=== PATIENT | female | born 1965 | race Caucasian/White ===

== ENCOUNTER 2025-06-28 09:29 | Outpatient (AMB) | payer BC, SELFPAY ==
--- OUTSIDE RECORDS SUMMARY | 2025-06-27 14:30 | XMS_ITS | Encounter Summary ---
Author Organization [facility] Address [address] [place] [phone] Phone Care Team Providers Care Ambulatory Services Representative Name Role Phone Cuco Naqvi MD Primary Care Provider [phone] Reason for Referral * Clinic Administered Medication - New Request Specialty Diagnoses / Procedures Referred By Chelsi mary Referred To Contact Diagnoses Intractable chronic migraine without aura and without status migrainosus Maria Guadalupe Benton PA-C [address] [place] [address] Phone: tel: fax: mailto:[email or web address] Referral ID Status Reason Start Date Expiration Date V isits Requested Visits Authorized [id number] New Request 06/27/2025 1 1 Reason for Visit * Clinic Administered Medication (Routine) - Authorized Specialty Diagnoses / Procedures Referred By Chelsi mary Referred To Contact Procedures AR BOTOX INJECTION Cuco Naqvi MD [address] [place] [phone] Phone: tel: fax: Maria Guadalupe Benton PA-C [address] [place] [address] Phone: tel: fax: [email or web address]:[email or web address] Referral ID Status Reason Start Date Expiration Date V isits Requested Visits Authorized [id number] Authorized 06/04/2025 06/04/2026 4 4 Encounter Details Date Type Department Care Team (Latest Contact Info) Description 06/27/2025 2:30 PM EST Procedure visit [facility] Neurology [address] [place] [address] Maria Guadalupe Benton PA-C [address] [place] [id number] [email or web address] Intractable chronic migraine without aura and without status migrainosus (Primary Dx) Social History Tobacco Use Types Packs/Day Years Used Date Smoking Tobacco: Never Smokeless Tobacco: Never Alcohol Use Standard Drinks/Week Comments Never 0 (1 standard drink = 0.6 oz pur e alcohol) Education Answer Date Recorded Are you interested in more education? Not on vince e 12/10/2022 Are you concerned about learning? Not on file 12/10/2022 No 12/10/2022 No 12/10/2022 Digital Access Answer Date Recorded No 01/11/2023 No 01/11/2023 Reliable internet access at home? Not on file 01/11/2023 Device with a working camera? Not on file Comments Unknown Sex and Gender Information Value Date Recorded Sex Assigned at Female 01/10/2020 9:39 AM EDT Legal Sex Female 3:16 PM EST Gender Identity Female 01/10/2020 9:39 AM EDT Sexual Orientation Straight 01/10/2020 9: 39 AM EDT documented as of this encounter Progress Notes * Maria Guadalupe Benton PA-C - 06/27/2025 2:30 PM EST Images from the original note were not included. HEADACHE MEDICINE FOLLOW UP CONSULTATION SHANTELLE Avi [facility] Current Headache Treatments/ Medications: Botox q3mo (started 07/20/2019) Propranolol 120mg qD Emgality Rizatriptan 10mg PRN ~ 3/week Vitamin B2 Vitamin D Iron potassium citrate Other Related Medications: levothyroxine ? Prior Headache Treatments / Medications / Adverse Events Imitrex, Zomig, Relpax - no effect Melatonin - gave bizzare dreams, did not help at 10mg qHS Medrol dose pack - helps a lot Amitriptyline, not effective Has had kidney stones (cannot get topamax) Excedrin, stopped because rough on stomach Interim History: Yazmin Arreola presents today for repeat Botox injections for chronic migraine. Treatment Response: - Frequency: currently reports 12 headache days per month; before botox 20-30 per month - Duration: 10-12 hours; Prior to Botox >6 hours - Intensity: 8/10; Prior to Botox 03/24 - Debility: 0 days missed work/ social activity - Emergency Department / Urgent Care visits due to migraine attacks: 0 Date of last injections: 03/11/2025 As above, Botox treatment is effective at decreasing the frequency, intensity, duration, and debility of migraine attacks and thus remains indicated in this patient. Prior Notes: 11/04/23 Dr. Galvan She has been following with Barby Salmon in interim for botox injections, which have significantly helped. She continues to report >50% improvement to Emgality and Botox. No side effects such as constipation. She is having headaches of some type about a few days per week, but only having severe migrianes that require require rizatriptan 4x/month. No other medication changes. At the last visit, she noted a new pulsatile sound in her L ear with some tinnitus. She is seeing an ENT next month to evaluate. There hasn't been any interval change since the last visit. MRI/MRA showed no vascular etiology but may have a sinus lesion to be evaluated by ENT. 12/28/2023 12:11 PM PROMS Headache Frequency How many days did you have ANY TYPE OF HEADACHE OR HEAD PAIN in the last month? 18 How many SEVERE HEADACHE OR HEAD PAIN DAYS did you have in the last month? (On a headache diary, this is a 7/10 or above) 7 How many days in the last month were COMPLETELY HEADACHE OR HEAD PAIN FREE? 13 Did you use a headache diary to answer these questions? Yes Since the last visit, how many times have you been to urgent care, the emergency room, or the hospital for your headaches? 0 Headache Frequency: 10/08 - 11/mo 04/05 - 3-4x/mo 12/2021 - maybe 1 mild headache/week, then 1-2 severe migraines monthly. Jul 2021 - near daily, only 1 severe (lasted a couple of days) December 2020 - 4 in past month (2 severe, 2 mild) Sep 2020 - 2 migraines in last month Jun 2020: daily mild headache, 3 severe migraines /mo. Q2 2019: 5-7 migraines/mo, which is significant improvement. Still having 2-3 non-migraine wake-up headaches/week for a total of 8-12 (15-20/mo). Q1 2019: 15-20/mo Q4 2018: 20-30/mo History of Present Illness: ? Yazmin Arreola is a 59 y.o. female with a long history of migraine, gastric bypass, hypothyroidism, who presents for evaluation and management of her headaches. Briefly, she has had a history of migrainous headaches (described below) since she was ~8 years old but was not formally diagnosed until she was in her early 30s. She believes these headaches used to be catamenial. Her current headache frequency is between 20 /mo and daily. She has not noticed any recent changes in the quality of her headaches, changes in her vision, speech, strength. She has had no recent DIGITAL MEDIA MANAGER infections or trauma. She has tried numerous medications over the past decades and is currently taking amitriptyline, Topamax and propranolol for migraine prevention. She is following with a neurologist in [facility] and would like to transfer care to this clinic. Her goal of care is to reduce headache frequency. On ROS, she reported that she had constant retroperitoneal pain, that she has had kidney stones in the past, and recently had elevated kidney function tests at her PCP (did not know #s). She also complains of frequent dry mouth. Headache Characteristics: ? Onset of headache: ~8 yo, continuous since onset Headache days per month: 20-30; 5 of them are severe. Typical headache duration: hours to 2-3 days Headache location/radiation: Starts above right eye, migrates to bifrontal Quality: Initially stabbing, then pulsating headache Associated features include: Photophobia, phonophobia, osmophobia, nausea, vomiting and cutaneous allodynia. ?Aura: Rarely happens, has had 4 episodes of visual aura involving OS vision. No speech changes, weakness. Autonomic features?: none Headache behavior: retreats to a dark room Headache worsened by: no major position change, but coughing, sneezing, exertion worsens. Headache improved by: triptan Headache triggers: weather, sleep deficit Dizziness: Rarely Menstrual association: yes effect: doesn't remember Sleep: 6-7hr/night -- amitriptyline really helps with this. ? Caffeine Use: ?1 cup of tea in AM Current Headache Treatments/ Medications: Topamax 100mg TID Amitriptyline 200mg qHS Propranolol 120mg qD rizatriptan 10mg PRN ~ 2-4/week Excedrin migraine ~ 4x/week Ibuprofen Vitamin B2 Vitamin D Iron Other Related Medications: levothyroxine ? Prior Headache Treatments / Medications / Adverse Events Imitrex, Zomig, Relpax - no effect Allergies Allergen Reactions Codeine Headaches Amoxicillin Rash Penicillins Rash Past medical history: Quynh's ?kidney function test elevation Kidney stones 1996 Gastric bypass 2008 Cholecystectomy 2010 Social History: , 1 child, teachers ? Family History: Mom, dad, brother with migraines Dad - diabetes ? ?Virtual Physical Examination:? Alert, normal speech, face symmetric INFORMED CONSENT: The rationale, risks, benefits, and alternatives of Botox injection for headaches were reviewed with the patient?. All questions were answered, consent was obtained, and the patient decided to proceed with the injections. ?? ? PROCEDURAL PAUSE?: Prior to starting the procedure, all pertinent records were reviewed, the nature of the procedure was explained, and a pre-procedure pause was performed. Procedural pause conducted to verify: correctpatient identity, procedure to be performed, correct patient position, special requirements, and asapplicable, correct side and site?. ? PROCEDURE DETAILS?: Botulinum toxin injection? INDICATION: Chronic migraine ? ??Using sterile technique, the skin was prepped with alcohol.? 1. 5 units into each roustabout crew pusher muscle and into the procerus muscle (15 units total). ? 2. 10 units into the right and left superior frontalis muscle (20 units total).? 3. 20 units into the right and left temporalis muscle (40 units total).? 4. 15 units into the right and left occipitalis muscle (30 units total).? 5. 10 units into the right and left? splenius capitis muscle (20 units total).??? 6. 15 units into the right and left?trapezius muscle (30 units total).? 155 units total. The remaining 45 units were wasted. ???The patient tolerated the procedure well.?? There were no apparent complications. Following an appropriate amount of observation, the patient was dismissed from the Clinic in good condition under her own power. Data Review: MRI/MRA 10/23/23 1. No imaging explanation for the reported left-sided pulsatile sound perception. 2. Purulent or proteinaceous content in the sphenoid sinus. Indeterminate 1 cm left maxillary sinusmedial wall lesion. Endoscopic ENT evaluation is recommended. Impression: ? Yazmin Arreola is a 59 y.o. female with a long history of migraine, gastric bypass, hypothyroidism, with chronic migraine without aura. She continues to experience improvement in both severity and headache frequency on both Botox and Egmality. Treatment Plan: ? -Botox for chronic migraine q3mo (started 07/20/2019) -Continue Emgality for migraine prevention - 120mg qmonthly -Continue propranolol 120mg daily -Rizatriptan for acute relief -Zofran for nausea as needed for migraine -Steroid (medrol dose pack) PRN for rescue from refractory (>3 day) migraine. Aiming for use no more than once a quarter. Maria Guadalupe Benton PA-C [facility] Neurology [address] [place] [address], [address] [place] [address] documented in this encounter Plan of Treatment Upcoming Encounters Date Type Department Care Team (Late st Contact Info) Description 10/08/2025 11:30 AM EST Procedure visit [facility] Neurology [address] [place] [address] Maria Guadalupe Benton PA-C [address] [place] [id number] [email or web address] 01/03/2026 2:30 PM EDT Office Visit [facility] Neurology [address] [place] [address] Jesi Rudolph PA-C [address] [place] [address] Department of Neurology, [place] [address] 03/10/2026 9:50 AM EDT Office Visit [facility] [address] [place] [phone] Shantelle Garzon DO [address] [place] [address] [email or web address] documented as of this encounter Visit Diagnoses Diagnosis Intractable chronic migraine without aura and without status migrainosus- Primary documented in this encounter Administered Medications Inactive Administered Medications - up to 3 most recent administrations Medication Order MAR Action Action Date Dose Rate Site botulinum toxin type A (BOTOX) injection 200 Units 200 Units, Intramuscular, Once, On Tracey 06/27/25 at 1530, For 1 dose, Refrigerate.Indications:Intrac table chronic migraine without aura and without status migrainosus Given 06/27/2025 2:34 PM EST 155 Units Other documented in this encounter Care Teams Ambulatory Services Representative Relationship Specialty Start Date End Date Cuco Naqvi MD [address] [place] [phone] PCP - General Family Medicine 07/22/17 documented as of this encounter Additional Source Comments The information contained in this document represents components of the legal health record. It is not the complete legal health record.[facility]
[2025-06-28 09:47] VITALS: BMI 44.4
--- NOTE | 2025-06-28 09:47 | A.SPINEOV_ITS ---
Vital Signs 06/28/25 09:47 Height 5 ft 1 in Weight 235 lb BMI 44.4 Intake Visit Reasons: LBP Intake Note: Ms. Arreola is here today c/o low back pain. MRI done at the [facility]. Fisher Diver Net Required: No Allergies codeine Allergy (Severe, Verified 06/28/25 09:49) Migraine Penicillins Allergy (Severe, Verified 06/28/25 09:49) Hives Physical Exam Vital Signs: BMI result Body Mass Index 44.4 Assessment & Plan Assessment & Plan (1) Spondylolisthesis, lumbar region: Code(s): M43.16 - Spondylolisthesis, lumbar region Category: Medical Plan Dear Dr Naqvi, Thank you for referring Mrs Arreola to our office today. She is a very nice 59-year-old female presents to the office today for evaluation of low back pain, bilateral lower extremity pain right greater than left which radiates down into her outer thighs, occasionally into her calf. The pain started many years ago and has been getting progressively worse. She is a transitional kindergarten teacher and very active, so she has been trying to push through it as the years have gone on. She has done physical therapy, as well as tried cortisone injections but nothing seems to help. The pain is aggravated with standing and walking but it also bothers her at night. She has had to limit a lot of the yoga positions that she can be involved with because of the pain and discomfort. She takes tramadol and Tylenol. She can not take anti-inflammatories because of chronic kidney disease. She has an MRI showing degenerative disc disease at L5-S1, spondylolisthesis at L4-5 as well as an incidental schwannoma at L4-5. She was told by Dr. Jay at [facility] that she was not a candidate for surgery so seeing us as a 2nd opinion. PMH: History of Quynh's thyroiditis which resolved, her numbers are back to normal, history of obesity, status post Luigi-en-Y gastric bypass in 2008, stage 3 kidney disease secondary to medications for migraines, , gregory cystectomy, rotator cuff surgery, foot surgery. Denies any cardiovascular disease, strokes, liver disease, pulmonary issues, bleeding disorders, blood clots, diabetes, cancer or unusual infections Social hx: She has not smoke, drink use any recreational drugs Medications: Tylenol Arthritis, omeprazole, tramadol, phentermine, multivitamin, rizatriptan, Emgality injection once a month, Botox every 3 months Allergies: Penicillin and amoxicillin give her a severe whole-body rash, codeine gives her headache Physical exam: Awake alert oriented no acute distress, gait is normal, strength normal. Imaging review: Lumbar MRI done in the [place] years reveals degenerative disc disease at L5-S1 with severely collapsed disc, L4-5 she has a spondylolisthesis. It appears to be grade 1. Intrathecal at the L4-5 interspace level there is a very small nodular appearing, likely schwannoma. Impression: 59-year-old female, evaluated for low back pain, bilateral lower extremity pain right greater than left, who has 2 pertinent findings on her MRI imaging. The 1st is spondylolisthesis at L4-5, and secondly L5-S1 degenerative disc disease. We sent the patient for flexion-extension x-rays here in the office today and this showed increased anterior listhesis of L4 and L5 in the upright position. It shows signs of instability and we think this would explain her pain. Dr. Long and I both met with her and reviewed surgical options with her. Because she has severe degenerative disc disease at L5-S1 in addition to the unstable segment at L4-5, we offered the patient L4-5, L5-S1 anterior versus oblique lumbar interbody fusion. We quoted success rate at 70% for the back pain. Before we can schedule her for surgery, we will need her to meet with our approach surgeon Dr. Caldwell. I did contact him just to ask about her gastric bypass surgery being a contraindication for surgery and he did not think it was an absolute contraindication. Once he has a chance to meet with her, we will schedule her surgery. The patient was given risk and benefits of [ ]surgery including but not limited to infection, hematoma, nerve injury, durotomy, weakness, bowel/bladder injury, persistent pain, and pseudoarthosis or instrumentation failure. We also discussed the option to continue with conservative treatment and patient wishes to proceed with surgery. They are aware they should stop NSAIDs 7 days prior to surgery. All questions were answered to the best of our ability. If there is anything about this patients medical history that we have overlooked or concerns you have about us proceeding with surgery we would appreciate any input you can offer Thank you for allowing us to care for your patient. The total time spent with this visit with this patient was 45 minutes reviewing history, physical exam, lumbar imaging review, and implementation of treatment plan or further diagnostic testing Ronal Long MD,PhD [facility] Orders: Orders XR lumbar spine 4V min Today M43.16 - Spondylolisthesis, lumbar region Coding Level of Care Code New Pt Level 4 (90557) Diagnoses Spondylolisthesis, lumbar region M43.16
--- OUTSIDE RECORDS SUMMARY | 2025-06-28 10:28 | XMS_ITS | Encounter Summary ---
Author Organization [facility] Address [address] [place] [address] [place] [address] Phone Care Team Providers Care Plant Engineering Supervisor Name Role Phone Cuco Naqvi MD Primary Care Provider [phone] Encounter Details Date Type Department Care Team (Late Contact Info) Description 10/10/2023 Procedure Pass [facility] [address] [place] [address] Social History Tobacco Use Types Packs/Day Years Used Date Smoking Tobacco: Never Smokeless Tobacco: Never Education Answer Date Recorded Are you interested [...] AM EDT documented as of this encounter Plan of Treatment Upcoming Encounters Date Type Department Care Team (Late Contact Info) Description 10/08/2025 11:30 AM EST Procedure visit [facility] [address] [place] [address] Maria Guadalupe Benton PA-C [address] [place] [phone] [email or web address] 01/03/2026 2:30 PM EDT Office Visit [facility] [address] [place] [address] Jesi Rudolph PA-C [address] [place] [address] Department of Neurology, [place] [address] 03/10/2026 9:50 AM EDT Office Visit [facility] [address] [place] [address] Dilshad Garzon DO [address] [place] [phone] documented as of this encounter Visit Diagnoses Not on filedocumented in this encounter Care Teams Plant Engineering Supervisor Relationship Specialty Start Date End Date Cuco Naqvi MD [address] [place] [id number] PCP - General Family Medicine 07/22/17 documented as of this encounter Additional Source Comments The information contained in this document represents components of the legal health record. It is not the complete legal health record.[facility]
--- OUTSIDE RECORDS SUMMARY | 2025-06-28 10:28 | XMS_ITS | Data Portability ---
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 [address] 02/06/2019 08:11:48 02/06/2019 09:01:39 Adult health examination 164946516 Z00.00 Pap and mammogram up-to-date . Screening lipids ordered. Check bone density strong family history of osteoporos is in her mother update screening lipids. Chronic back pain 552664 002 M54.14 Heavy pendulous breast seem to be a factor with a chronic back pain referred to plastic surgery to consider breast reduction [place] is of skin AND/OR subcutaneous tissue 08156846 L02.92 consider paniculect melida, referred to plastic surgery Migraine 52483850 G43.90 9 Having poor control in spite of chronic medical therapy including propranolo l topiramate and pain. Will have second opinion headache center in [place] Goiter 5481902 E04.9 Check TSH continue low-dose levothyrox ine update thyroid ultrasound [id number] MD cuco Dey md [address] [place] [address] 06/26/2019 15:48:14 06/26/2019 16:33:26 Excess panniculus of abdomen 4541654600 101 E65 Patient is medically cleared for scheduled panniculec ellie which is medically indicated due to chronic re-occurri ng infections Chronic ki dney disease stage 3 356052986 N18.3 GFR typically 44 watch renal clearance after anesthesia [id number] MD cuco Dey md [address] [place] [address] 10/24/2019 15:26:09 10/24/2019 16:05:44 Kidney stone 64474342 N20.0 Stone still not passed check urine rule out UTI continue tamsulosin to assist with passing stone needs metabolic work-up will see nephrology shortly has chronic renal failure [id number] MD cuco Dey md [address] [place] [address] 02/12/2020 15:28:45 02/12/2020 16:53:11 Adult health examination 533245823 Z00.00 Screening mammogram and bone density her mother has history of osteoporos is screening colonoscop y ordered update lipids diet exercise and weight loss discussed trial of phentermin e appetite suppressan t 37.5 mg 1 a day reevaluate in 1 to 2 months recommende d low carbohydra te diet calorie restricted diet Non-toxic multinodular goiter 05652531 E04.2 Update TSH. Recheck in 6 months. Kidney stone 56281769 N2 0.0 Avoid supplement al calcium until 24-hour urine is obtained or kidney stone is analyzed [id number] MD cuco Dey md [address] [place] [address] 03/24/2020 14:56:34 03/24/2020 15:44:30 Morbid obesity 662724758 E66.01 May continue phentermin e lost 6 pounds since last visit reviewed diet recheck in 6 weeks Chronic he adache disorder 988555650 G44.89 cont botox, amitriptyl ine, propranolo l and rizatripta n,If headaches not improved over the next few days discontinu e phentermin e to see if headaches were exacerbate d Chronic renal failure 90 406084 N18.9 Blood pressure remained stable watch GFR, repeat at followup [id number] MD cuco Dey md [address] [place] [address] 05/06/2020 16:23:48 05/06/2020 17:01:22 Obesity 071436602 E66.9 May continue phentermin e discussed calorie food diary as a phone cayetano with moderate walking exercise getting a new dog will be more active Chronic he adache disorder 437351129 G44.89 cont botox, amitriptyl ine, propranolo l and rizatripta n, discussed poor sleep , had prior sleep testing with no libra Chronic renal failure 90 771481 N18.9 Blood pressure remained stable watch GFR, repeat at followup, avoid nsaids, cont propranolo l 03865 MD cuco Dey md [address] [place] [address] 07/01/2020 16:29:04 07/01/2020 16:55:14 Low back pain 447942675 M54.5 Trial of cyclobenza bethany 10 mg at at bedtime heating pad consider x-ray sacral spine Insomnia 872464767 G47.0 0 Cyclobenza bethany may be helpful no history of sleep apnea previously tested denies any anxiety or fatigue Morbid obesity 051421414 E66.01 Tolerating [place] [address] MD cuco Dey md [address] [place] [address] 10/22/2020 16:30:51 10/22/2020 16:53:00 Chronic back pain 314781202 M54.14 Spine recheck referred to physical therapy for obesity they continue some phentermin e but having max benefit consider discontinu ing [id number] MD cuco Dey md [address] [place] [address] 03/16/2021 10:57:26 03/16/2021 11:52:26 Adult health examination 557194614 Z00.00 Diet exercise and weight loss reviewed she is up-to-date on immunizati ons May continue with phentermin e reevaluate in 3 months mammogram and Cologuard ordered screening labs including lipids and CBC are normal [id number] MD cuco Dey md [address] [place] [address] 07/20/2021 16:30:07 07/20/2021 17:00:08 Obesity 026458047 E66.9 Migraine 95620637 G43.90 9 Fatigue 48625179 R53.83 Plantar fa sciitis of left foot 0248279737 1327197 M72.2 93714 MD cuco Dey md [address] [place] [address] 09/28/2021 15:30:19 09/28/2021 16:14:47 Gastroesophageal reflux disease 904634321 K21.9 Obesity 669888722 E66.9 Chronic renal failure 90 845953 N18.9 91856 MD cuco Dey md [address] [place] [address] 12/15/2021 16:29:32 12/15/2021 16:59:27 Obesity 489232089 E66.9 Migraine 77801137 G43.90 9 50203 MD cuco Dey md [address] [place] [address] 02/24/2022 08:01:42 02/24/2022 08:48:33 Obesity 456388863 E66.9 Anemia 840133661 D64.9 Chronic renal failure 90 494683 N18.9 36091 MD cuco Dey md [address] [place] [address] 09/06/2022 10:17:51 09/06/2022 14:17:10 COVID-19 519299250 U07.1 Obesity 373907855 E66.9 Injury of head 93545386 S09.90XA Kidney stone 68385172 N2 0.0 Chronic renal failure 90 972139 N18.9 06572 MD cuco Dey md [address] [place] [address] 09/13/2022 09:28:15 09/13/2022 09:43:37 Injury of head 59744031 S09.90XA Patient may have suffered a mild concussion last week but seems to be doing well returning to work today [place] removed successful ly follow-up if not improving. 15 min visit 59919 MD cuco Dey md [address] [place] [address] 10/11/2022 07:58:49 10/11/2022 08:32:57 Body mass index 40+ - severely obese 330127655 Z68.41 Hyperparathyroidism 6699 9008 E21.3 Migraine 60473943 G43.90 9 Obesity 118064721 E66.9 04223 JULIO Casillas md [address] [place] [address] 01/03/2023 10:58:36 01/03/2023 11:18:36 Acute sinusitis 07816590 J01.90 [id number] MD cuco Dey md [address] [place] [address] 06/30/2023 09:25:59 06/30/2023 10:14:58 Morbid obesity 562665254 E66.01 Lumbar radiculopathy 128 031899 M54.16 Migraine 58257682 G43.90 9 [id number] MD ccuo Dey md [address] [place] [address] 07/28/2023 08:24:59 07/28/2023 08:56:56 Arthropathy of lumbar facet joint 814876849 M47.816 Asthma 448713091 J45.90 9 Migraine 90301272 G43.90 9 Obesity 567323392 E66.9 [id number] MD cuco Dey md [address] [place] [address] 10/13/2023 08:01:33 10/13/2023 08:37:26 Lumbar radiculopathy 844313991 M54.16 order MRI of lumbar spine and referral back to pain clinic in [place] for facet injection. Osteoarthritis 383008832 M19.90 Mostly takes Tylenol and avoids being sedentary nonsteroid als are off limits due to mild renal insufficie ncy Chronic ki dney disease stage 3 129055144 N18.30 Follows up with nephrology kidney function has improved Hyperparathyroidism 6699 9008 E21.3 Sees endocrinol tavon at [facility] has modified diet will obtain records. Morbid obesity 674476855 E66.01 Continued weight gain she finds phentermin e somewhat helpful. Trials in the past of included topiramate which she did not tolerate. She also tried diet with Noom. She also had trial of Ozempic which made her too nauseous. She reports walking up to 6 miles a day. Route reviewed diet. Calculus o f kidney and ureter 662468662 N20.2 Had follow-up with nephrology in [facility] and receives surveillan ce once a year drinks plenty of fluids and modifies diet. Migraine 50981316 G43.90 9 Continues Botox injections in [place]. Has an MRI scheduled as she is noticing a pulsating sound in her left ear. [id number] MD cuco Dey md [address] [place] [facility] [place] [address] 12/20/2023 07:58:57 12/20/2023 08:37:08 Chronic back pain 411615711 M54.14 Schwannoma 804066671 D36 .10 Tinnitus of left ear 456 8762706 106 H93.12 Obesity 161205110 E66.9 [id number] MD cuco Dey md [address] [place] [address] 03/21/2024 09:04:10 03/21/2024 09:50:48 Lumbar radiculopathy 580786325 M54.16 Scheduled to see back surgeon next month again discussed facet injections Bilateral tinnitus 35912 41702 102 H93.13 Scheduled to see ENT next month Obesity 974782066 E66.9 Would like referral to obesity specialist perhaps in [place] once other issues resolved. She did not tolerate Ozempic at low-dose and phentermin e has not been helpful. She has had gastric bypass and regained weight Nausea 104593621 R11.0 Has history of cholecyste ctomy may be bile malabsorpt ion trial of cholestyra mine. Gets frequent cramping pain will check CT of the abdomen. Skin lesion 29166777 L98 .9 Suspicious for squamous cell or basal cell on the left calf and chest refer to surgery for removal Hyperparathyroidism 6699 9008 E21.3 Check calcium and parathyroi d levels. Migraine 88978304 G43.90 9 Continues Botox injections in [place]. [id number] MD cuco Dey md pc [address] [place] [address] 05/24/2024 08:52:33 05/24/2024 09:47:36 Thyroid nodule 776664539 E04.1 Along with thyromegal y check radionucle otide thyroid scan T3-T4 TSH. Referral to endocrinol ogy in [facility] Obesity 028578882 E66.9 Will consult with endocrinol ogist in [facility]. Having some success with phentermin e Sinusitis 05377110 J32.9 On a 3-week course of antibiotic has follow-up with ENT Tinnitus 24568881 H93.11 Continues workup with ENT angiogram was performed showing no vascular lesions other than hypervascu larity of the thyroid Migraine 50722757 G43.90 9 Continues Botox injections in [place]. She gets migraines every month but better controlled continues Emgality as well and takes triptans when needed. I discussed upcoming menopause may cause some relief Kidney stone 81221410 N2 0.0 Had severe pain now resolved went to ER prior history of kidney stones [id number] MD cuco Dey md pc [address] [place] [address] 09/05/2024 08:01:20 09/05/2024 09:18:45 Thyroid nodule 437226136 E04.1 Check radionucle otide thyroid scan to rule out malignancy Lumbar radiculopathy 128 440454 M54.16 We discussed usefulness of facet injections and possible SI injection. Unable to take nonsteroid als given a prescripti on for tramadol after discussion Obesity 012159312 E66.9 Will consult with endocrinol ogist in [facility] Having some success with phentermin e Migraine 77266858 G43.90 9 PRN Botox injections in [place]. Continues Emgality and propranolo l prophylaxi s and takes triptans when needed. Edema of l ower extremity 393004229 R60.0 Probable combinatio n of venous insufficie ncy and multiple sprains earlier in life possibly some arthritis. Recommende d support stockings initially Hyperparathyroidism 6699 9008 E21.3 Last PTH 132, last calcium 9.4. Initial ENT consult pending Renal insufficiency 7231 83315 N28.9 Last GFR normalized to greater than 60 Chronic sinusitis 283520 00 J32.9 Pending ENT surgery Recurrent kidney stone 5620494623 681570 N20.0 Currently not symptomati c. Hyperparat hyroidism may be contributi ng to stones. [id number] MD cuco Dey md [address] [place] [address] 09/17/2024 10:26:08 09/17/2024 11:03:24 Chronic sphenoidal sinusitis 48033433 J32.3 Asthma 568586046 J45.90 9 Obesity 622820584 E66.9 Will consult with endocrinol ogist in [facility]. Having some success with phentermin e [id number] MD cuco Dey md [address] [place] [address] 12/05/2024 16:27:42 12/06/2024 07:43:48 Hyperparathyroidism 19458633 E21.3 Keep follow-up next month with endocrinol ogy Migraine 81073685 G43.90 9 PRN Botox injections in [place]. Continues Emgality and propranolo l prophylaxi s and takes triptans when needed. Obesity 023253439 E66.9 Arthropath y of lumbar facet joint 602580415 M47.816 Returning to pain clinic to consider other injections [id number] MD cuco Dey md [address] [place] [address] 06/06/2025 16:00:17 06/06/2025 16:53:27 General examination of patient 712080576 Z00.00 [id number] Updated screening mammogram recommende d fall immunizati ons. Check chemistry lipids CBC. Trial of Zepbound for obesity Lumbar radiculopathy 128 700692 M54.16 57597 Referral to neurosurge ry for second opinion Health Concerns Section Related Observation LastModified by Organization Detai ls LastModified Time None Recorded Concern Status LastModified by Organization Details LastModified Time None Recorded Advance Directives Directive None Recorded Payers Insurance Date Sequence Insurance Name Policy Number Policy Tompkins Covered Member ID Tompkins Member ID Guarantor Name 06/11/2025 1 [place] [facility] [id number] Yazmin Arreola [id number] Yazmin Arreola Notes Date Note Type Note Provider Name and Address Organization Details Recorded Time 4 text/html Follow-up with history of asthma hyperparathyroidism kidney stones with chronic renal disease facet arthropathy and migraine. She was seen at [facility] for kidney stone over the past month and passed the kidney stone. During this time she was seen by ENT for pulsatile tinnitus. She underwent angiogram to rule out aneurysm. No aneurysm was found but there was an incidental thyroid nodule. Follow-up was recommended. She continues follow-ups for Botox injections in [place]. The injections tend to help. She also has Emgality on hand. For weight loss she has resumed phentermine and lost some weight. She would like referral for further evaluation of the thyroid nodule. MD [address], [place], [address], [facility] - Cuco Naqvi MD 05/26/2024 15:49:12 5 text/html Here to follow-up. Since last visit the pain clinic is scheduled for facet injections and possible SI injections. low back pain is constant. Due to history of renal insufficiency secondary to obstructing kidney stones she has avoided nonsteroidal anti-inflammatories. Thyroid nodule was detected on imaging performed by ENT for pulsatile tinnitus. She was found to have a chronic sphenoid sinusitis and is scheduled for ENT surgery. This sinusitis gives her constant pressure in the face. Patient does also have visit scheduled with endocrinology for hyperparathyroidism. Finally the patient complains of swelling over her left ankle but not the right. No injury recalled recently but had multiple sprains during childhood. The swelling never seems to go down at night. MD [address], [place], [address], [facility] - Cuco Naqvi MD 09/05/2024 09:04:37 5 text/html Here for preoperative evaluation. Patient is scheduled for right trans ethmoidal sphenoidectomy to correct a chronic sinus-itis. She has frequent headaches originating from the posterior right eye. No recent fever or sputum production. No history of cardiac disease. She does have history of asthma but this is not symptomatic. MD [address], [place], [address], [facility] - Cuco Naqvi MD 09/17/2024 11:05:53 5 text/html Follow-up visit with history of hyperparathyroidism obesity and recently completed sinus surgery. The sinus surgery went okay. She received some facet injections for back pain but they were not helpful. This was followed by SI injections at the pain clinic which gave relief for a couple of weeks. Patient has follow-up with endocrinology for hyperparathyroidism. She would like to have her varicella titer checked to determine whether she needs shingles vaccination. She has also taken up beekeeping and though she has never had a strong reaction to bees she would like to have an EpiPen on hand. MD [address], [place], [address], [place] Naqvi MD 12/05/2024 17:15:55 5 text/html Here for annual exam. Patient recently had MRI for chronic back pain. Patient had updated neurologic consultation for lumbar radiculopathy. Updated MRI was reviewed with patient. She has undergone a series of back injections under the supervision of the pain clinic and neurology without relief. Pain has been present over 2 years primarily in the low back radiating to both hips and down to the right L5 dermatome to the foot occasionally the left L5 dermatome to the foot average pain is 7 out of 10. Exacerbation includes walking standing sitting lying down bending twisting driving or lying on the right side. Currently uses tramadol for pain unable to take nonsteroidals due to chronic kidney disease updated MRI refilled L5-S1 disc narrowing and desiccation with associated type I Modic changes. After extensive physical therapy and a series of back injections patient has persistent pain. She is seeking second opinion.Otherwise she would like to lose weight and it has not had success with diet. She also follows up with neurology for migraines. MD [address], [place], [address], [place] - Cuco Naqvi MD 06/09/2025 15:10:34 OBGyn Episode No OBEpisode recorded.
--- OUTSIDE RECORDS SUMMARY | 2025-06-28 10:28 | XMS_ITS | Clinical Summary ---
Author Organization [facility] Address [address] [address] Phone Care Team Providers Care Assistant Public Defender Name Role Phone Cuco Naqvi MD Primary Care Provider Allergies Active Allergy Reactions Criticality Noted Date Comments Amoxicillin Rash Low 08/22/2017 Codeine Headaches 08/22/2017 Penicillins Rash Low 08/22/2017 Medications omeprazole (PRILOSEC) 40 MG capsule Take 40 mg by mouth daily. Active MULTIVITAMIN ORAL Take by mouth. Active ondansetron (ZOFRAN-ODT) 4 MG disintegrating tablet Take 1 tablet (4 mg total) by mouth every 8 (eight) hours as needed for nausea. 20 tablet 3 9 Active botulinum toxin type A (BOTOX) 200 unit SolR 200 units to be injected in head/neck by MD every 3 months 200 Units 3 1 Active phentermine (ADIPEX-P) 37.5 mg tablet Take 37.5 mg by mouth daily before breakfast. Active rizatriptan (MAXALT) 10 MG tabletIndications:I ntractable chronic migraine without aura and without status migrainosus TAKE 1 TABLET BY MOUTH ONCE DAILY NEEDED FOR MIGRAINE. MAY REPEAT IN 2 HOURS IF NEEDED. 20 tablet 3 Active propranoloL (INDERAL LA) 120 mg 24 hr capsuleIndications: Intractable chronic migraine without aura and without status migrainosus Take 1 capsule by mouth once daily 30 capsule 3 Active galcanezumab-gnlm (EMGALITY PEN) 120 mg/mL subcutaneous injectionIndication s:Intractable chronic migraine without aura and without status migrainosus Inject 1 mL (120 mg total) under the skin every 30 (thirty) days. 1 mL 11 Active traMADoL (ULTRAM) 50 mg tablet Take 20 mg by mouth every 6 (six) hours as needed for pain (specific location in comments). Active Bacillus coagulans-inulin 1 billion-250 cell-mg Cap Take 250 mg by mouth daily. Active EPINEPHrine 0.3 mg/0.3 mL auto-injector INJECT CONTENTS OF 1 PEN NEEDED FOR SEVERE ALLERGIC REACTION Active Hospital, Clinic, or Other Facility Administered Medication Ordered Dose Route Frequency Start Date End Date Status botulinum toxin type A (BOTOX) injection 200 UnitsIndications:Intractabl e chronic migraine without aura and without status migrainosus 200 Units IM Once 06/27/2025 06/27/2025 Ended Active Problems Problem Noted Date Diagnosed Date Nontoxic multinodular goiter 03/08/2025 Assessment & Plan (03/08/2025 10:04 AM EDT): Patient has a nodular goiter. Has a total of 3 nodules 2 in the right lobe 1 in the left or 3-biopsy found to be benign is a TI-RADS 3 nodules. She is due for repeat ultrasound in 11/16/2025. Ultrasound has been requested. Chronic fatigue 03/08/2025 Assessment & Plan (03/08/2025 10:20 AM EDT): The patient states she complains of fatigue and difficulty losing weight. I have basically done most of the workup that I do from endocrine perspective for fatigue but I added some new lab work that has not been done for further evaluation and she can do these anytime but it should be done fasting. If there is any abnormalities we can work this up further. Or potentially can be referred to her PCP if is not endocrine related. As for weight loss I offer GLP-1 agonist and she states that she is already tried and she does not feel good with them furthermore she did not lose weight with it. Osteopenia of neck of right femur 12/31/2024 Assessment & Plan (03/08/2025 10:15 AM EDT): She believes that her last DXA scan was done in 2019. I asked her to speak with her primary care physician to repeat the study because she is past due. I did evaluate for secondary causes of osteopenia/osteoporosis and I did not find any. So she should be taking calcium. Vitamin D levels were in the reference range and she gets good sun exposure I do not believe she is taking vitamin D supplements. But if the vitamin D levels are fine then I do not see any reason to supplement. She should do weightbearing exercises. Right now I do not have a FRAX score so do not know what her risk for fracture is. She should repeat the DXA scan and we can proceed from there. Assessment & Plan (12/31/2024 3:32 PM EDT): She indeed does have osteopenia and hyperparathyroidism. Since obtaining lab work I will do biochemical workup for evaluation of secondary causes of osteopenia. She does not need to find her DXA scan from 2023. DXA scan was done in [facility] in [place]. Nodular goiter 11/05/2024 Assessment & Plan (12/31/2024 3:28 PM EDT): The patient has an enlarged thyroid gland. She has 3 large nodules which she believes all have been biopsied. They are TI-RADS 3 based on the report we will repeat ultrasound in 1 year. Assessment & Plan (11/05/2024 9:19 AM EDT): And the patient states she had thyroid biopsy circa 2009 however she has not had any further follow-up with endocrinology and will request ultrasound. In terms of symptoms she has occasional dysphonia and dysphagia. Hyperparathyroidism, unspecified 11/05/2024 Assessment & Plan (03/08/2025 10:16 AM EDT): 24-hour urine calcium output is in the normal reference range so appears that she is getting adequate dietary calcium and vitamin D is in the reference range GFR is in the reference range I suspect that the normocalcemic hyperparathyroidism is due to gastric bypass and possibly parathyroid hyperplasia. I will repeat intact PTH, renal panel and vitamin D level prior to the follow-up visit. Assessment & Plan (12/31/2024 3:15 PM EDT): Patient has hyperparathyroidism this is normocalcemic versus parathyroid hyperplasia due to gastric bypass. Will obtain 24-hour urine calcium output and since I am doing a 24-hour urine calcium output I will check 24-hour urine phosphorus. If she is not getting adequate calcium intake this may be the reason for her elevated intact PTH. Presently she does not take any calcium supplements. But she does not have any secondary problems such as nephrolithiasis or osteopenia/osteoporosis. Assessment & Plan (11/05/2024 9:18 AM EDT): Unfortunately I do not have any lab work will request ultrasound of the thyroid gland for evaluation of parathyroid adenoma and also request biochemical workup for further evaluation. At this point I am not going to order a 24-hour urine calcium because I am confirmed hyperparathyroidism since lab work was not sent. Quynh's thyroiditis 11/05/2024 Assessment & Plan (03/08/2025 10:13 AM EDT): Previously free T4 was low but check free T4 by equilibrium dialysis and total T4 these were in the normal reference range. Also check mouse antibodies to ensure that TSH level was not the problem. She does not have any mouse antibodies and TSH is in the reference range. We do need to monitor TSH with reflex free T4 at least once a year as she is prone to develop hypothyroidism. Assessment & Plan (12/31/2024 3:21 PM EDT): She has been found to have low free T4 on 2 occasions despite normal TSH. We will check free T4 by equilibrium dialysis. Will also check total T4 and I will request human antimouse antibodies to check and see that the TSH assay is not being affected by mouse antibodies. She has been taking biotin so this can affect her lab work. She was advised not to take biotin at least a week before the lab work. It can affect her thyroid function studies. Assessment & Plan (11/05/2024 9:18 AM EDT): Is possible that the patient may be hypothyroid she did take levothyroxine in the past. I will request thyroid function studies. Chronic migraine without aura 05/18/2019 Encounters Date Type Department Care Team Description 06/27/2025 2:30 PM EST Procedure visit [facility] Neurology [address] [place] [address] Maria Guadalupe Benton PA-C Intractable chronic migraine without aura and without status migrainosus (Primary Dx) from Last 3 Months Family History Medical History Relation Comments Diabetes Father Hypothyroidism Mother Thyroid disease Mother Diabetes Paternal Aunt Diabetes Paternal Grandmother Relation Status Comments Father Mother Paternal Aunt Paternal Grandmother Social History Tobacco Use Types Packs/Day Years [...] Orientation Straight 01/10/2020 9: 39 AM EDT Last Filed Vital Signs Vital Sign Reading Time Taken Comments Blood Pressure 126/70 03/08/2025 9:33 AM EDT Pulse 73 03/08/2025 9:33 AM EDT Temperature 37.1 C (98.8 F) 01/02/2024 1:27 PM EDT Respiratory Rate - - Oxygen Saturation 97% 03/08/2025 9:33 AM EDT Inhaled Oxygen Concentration - - Weight 108.9 kg (240 lb) 03/08/2025 9:33 AM EDT Height 154.9 cm (5' 0.98 ) 03/08/2025 9:33 AM E DT Body Mass Index 45.37 03/08/2025 9:33 AM EDT Plan of Treatment Upcoming Encounters Date Type Department Care Team (Late st Contact Info) Description 10/08/2025 11:30 AM EST Procedure visit [facility] Neurology [address] [place] [address] Maria Guadalupe Benton PA-C [address] [place] [address] [email or web address] 01/03/2026 2:30 PM EDT Office Visit [facility] Neurology [address] [place] [phone] Jesi Rudolph PA-C [address] [place] [address] Department of Neurology, [place] [address] 03/10/2026 9:50 AM EDT Office Visit [facility] [address] [place] [id number] Dilshad Garzon DO [address] [place] [address] Health Maintenance Due Date Last Done Comments LIPID PANEL 1967 DEPRESSION SCREENING 1979 HEPATITIS C SCREENING 1985 HIV ONE-TIME SCREENING (18-65 YEARS) 1985 PAP SMEAR 1988 MAMMOGRAM 2007 COLOGUARD 2012 COLONOSCOPY 2012 COLORECTAL CANCER SCREENING 2012 FIT TEST 2012 FOBT 2012 SIGMOIDOSCOPY 2012 VIRTUAL COLONOSCOPY 2012 PNEUMOCOCCAL VACCINES (50+ years) (1 of 1 - PCV) 2017 RSV VACCINE (1 - Risk 50-74 years 1-dose series) 2017 ZOSTER VACCINES (1 of 2) 2017 INFLUENZA VACCINE (#1) 2025 , 07/02/2022, 06/03/2021, Additional history exists COVID-19 VACCINE ( season) 2025 05/16/2023, 07/02/2022, 07/17/2021, Additional history exists SCREENING FOR DIABETES 02/02/2028 02/01/2025 Adult Td,Tdap Booster 02/11/2030 02/12/2020 SMOKING STATUS SCREENING (Once After 26 Yrs) Completed 12/31/2024 HEPATITIS A VACCINES Aged Out No long er eligible based on patient's age to complete this topic HIB VACCINES Aged Out No longer eligi ble based on patient's age to complete this topic IPV VACCINES Aged Out No longer eligi ble based on patient's age to complete this topic MENINGOCOCCAL VACCINES (ACWY) Aged Out No longer eligible based on patient's age to complete this topic MENINGOCOCCAL VACCINES (B) Aged Out N o longer eligible based on patient's age to complete this topic Medical Devices Not on file Insurance Care Teams Assistant Public Defender Relationship Specialty Start Date End Date Cuco Naqvi MD [address] [place] [id number] PCP - General Family Medicine 07/22/17 Additional Source Comments The information contained in this document represents components of the legal health record. It is not the complete legal health record.[facility]
--- OUTSIDE RECORDS SUMMARY | 2025-06-28 10:28 | XMS_ITS | Encounter Summary ---
Author Organization [facility] Address [address] [place] [address] [place] [phone] Phone Care Team Providers Care R&D Engineer Name Role Phone Cuco Naqvi MD Primary Care Provider [phone] Encounter Details Date Type Department Care Team (Late Contact Info) Description 10/10/2023 Procedure [facility] [address] [place] [address] Social History Tobacco Use Types Packs/Day Years [...] AM EST Procedure visit [facility] [address] [place] [address] Maria Guadalupe Benton PA-C [address] [place] [phone] [email or web address] 01/03/2026 2:30 PM EDT Office Visit [facility] [address] [place] [address] Jesi Rudolph PA-C [address] [place] [address] Department of Neurology, [place] [address] 03/10/2026 9:50 AM EDT Office Visit [facility] [address] [place] [phone] Dilshad Garzon DO [address] [place] [phone] documented as of this encounter Visit Diagnoses Not on filedocumented in this encounter Care Teams R&D Engineer Relationship Specialty Start Date End Date Cuco Naqvi MD [address] [place] [phone] PCP - General Family Medicine 07/22/17 documented as of this encounter Additional Source Comments The information contained in this document represents components of the legal health record. It is not the complete legal health record.[facility]
== END 2025-06-28 11:01 | disposition home or self-care (01) ==
LOC: HO.HNS 09:29
PROVIDERS: PCP Family Medicine; Referring Provider Family Medicine; Visit Provider Physician Assistant
DX: M43.16 Spondylolisthesis, lumbar region (principal)
CPT/HCPCS: 99204

== ENCOUNTER 2025-06-28 09:29 | Outpatient (REF) | payer BC, SELFPAY ==
--- NOTE | ~2025-06-28 | XR_ITS ---
EXAMINATION: XR LUMBOSACRAL SPINE CLINICAL INFORMATION: M43.16 - Spondylolisthesis, lumbar region COMPARISON: None available. TECHNIQUE: Lateral views in neutral, flexion and extension position. AP view. FINDINGS: Multilevel marginal osteophyte formation and endplate sclerosis throughout the axial skeleton. There is a grade 1 anterolisthesis L4-5 in neutral position which remains unchanged during flexion and extension position. No acute cortical disruption. No lytic or blastic lesions. Facet joint hypertrophy at L4-5 and L5-S1. Vascular clips right upper quadrant abdomen likely laparoscopic cholecystectomy. Sutures at the gastroesophageal junction. XR/XR lumbar spine 4V min IMPRESSION: Grade 1 anterolisthesis L4-5 without instability. Electronically signed by: Lei Edgar MD 06/28/2025 11:34 AM KEENAN RUGGIERO
== END 2025-06-28 09:30 | disposition home or self-care (01) ==
LOC: HO.HOSX 09:29
PROVIDERS: PCP Family Medicine; Referring Provider Family Medicine; Visit Provider Physician Assistant
DX: M51.372 Other intervertebral disc degeneration, lumbosacral region with discogenic back pain and lower extremity pain (principal); M43.16 Spondylolisthesis, lumbar region
CPT/HCPCS: 72110

== ENCOUNTER → 2025-06-28 10:08 | Outpatient (BNV) | payer BC, SELFPAY | PROVIDERS: PCP Family Medicine; Referring Provider Family Medicine; Visit Provider Radiology Diagnostic Radiology | DX: M43.16 Spondylolisthesis, lumbar region (principal) | CPT/HCPCS: 72110 ==